=== PATIENT | female | born 1965 | race Two or more races ===

== ENCOUNTER 2020-08-02 21:56 | Emergency (ER) | payer MEDICAID ==
[~2020-08-02] VITALS: Ht 170.2 cm; Wt 79.8 kg
[2020-08-03 04:17] VITALS: BP 115/69
== END 2020-08-03 04:28 | disposition home or self-care (01) ==
LOC: EDBD 21:56 → ER 22:04
DX: T40.7X1A Poisoning by cannabis (derivatives), accidental (unintentional), initial encounter (principal); F41.9 Anxiety disorder, unspecified; E78.5 Hyperlipidemia, unspecified; I10 Essential (primary) hypertension; Z90.710 Acquired absence of both cervix and uterus; Y92.9 Unspecified place or not applicable
CPT/HCPCS: 93005